=== PATIENT | male | born 1940 | race Caucasian/White ===

== ENCOUNTER 2019-09-03 06:15 | Emergency (ER) | payer MEDICARE, OTHER ==
[~2019-09-03 06:15] MED LIST: EPINEPHrine 1:10,000 1 MG/10 ML Syringe IVPUSH ONE
[2019-09-03] MEDS ORDERED: EPINEPHrine 1:10,000 1 MG/10 ML Syringe IVPUSH ONE ×3 (06:24→06:37)
[2019-09-03] MEDS ORDERED: Amiodarone 150 MG/3 ML SDV ONE ×2 (06:29)
[2019-09-03] MEDS ORDERED: EPINEPHrine 1:10,000 1 MG/10 ML Syringe ONE ×3 (06:29)
[2019-09-03] MEDS ORDERED: Amiodarone 150 MG/3 ML SDV IVPUSH ONE ×2 (06:29→06:30)
--- NOTE | 2019-09-03 06:49 | EDM.PDOC ---
ED HPI GENERAL MEDICAL PROBLEM - General Chief Complaint: General Stated Complaint: code blue Time Seen by Provider: 09/03/19 06:15 Source of Information: Reports: EMS, EMS Notes Reviewed (EMT records however process manager records not available at time of dictation). Denies: Patient, Old Records (No [facility] records available) History Limitations: Reports: Altered Mental Status (Unresponsive) - History of Present Illness INITIAL COMMENTS - FREE TEXT/NARRATIVE: The patient was brought to the emergency room via ambulance with both EMT and process manager accompaniment for evaluation of the patient, who initially complained of nonspecific dizziness and was found unresponsive and severely diaphoretic sitting on the toilet. Based on history from the acting manager the patient must have called from the kitchen and went to the bathroom prior to the arrival of the basic ambulance service. No history of fall, injury, or melena/hematochezia evident in the toilet based on their history The paramedics did intercept the acting manager in route with IV placed and 100% O2 by nonrebreather mask applied. EKG had been performed by the acting manager prior to arrival by the paramedics. Limited history is available from the initial call with the acting manager, including dizziness as above with some apparent moderate diarrhea yesterday. Patient initially exhibited sinus tachycardia, subsequent severe sinus bradycardia and subsequent asystole at time of arrival to our facility. Onset: Today, Sudden Onset Date: 09/03/19 Onset Time: 05:30 Duration: Getting Worse Treatments QUALITY ENGINEER: Reports: EKG, IV/IO, Oxygen Past Medical History HEENT History: Reports: Impaired Vision, Other (See Below) Other HEENT History: Patient wears glasses - Past Surgical History HEENT Surgical History: Reports: Oral Surgery, Other (See Below) Other HEENT Surgeries/Procedures: Complete teeth extraction - History Comment History Comment: No previous medical records with only limited history available Social & Family History - Living Situation & Occupation Living situation: Reports: Alone ED ROS GENERAL - Review of Systems Review Of Systems: Unable To Obtain Reason Not Obtained: Patient nonresponsive ED EXAM, GENERAL - Physical Exam Exam: See Below Exam Limited By: Altered Mental Status (Unresponsive) General Appearance: Obtunded Eye Exam: Bilateral Eye: Other (Pupils fixed and dilated. He does have glasses.) Throat/Mouth: Perioral Cyanosis, Other (Evidence of melena in oral cavity). No: Normal Teeth (Completely absent dentition) Neck: Other (No evidence of acute injury) Respiratory/Chest: Rales (Diffuse bilateral with bag mask therapy), Other (Apnea with no spontaneous respirations) Cardiovascular: No Edema (Asystole with good peripheral pulses with Lui 2 chest compressions), Other Peripheral Pulses: 2+: Carotid (L) (With Lui 2 chest compressions), Carotid (R) (As above), Radial (L) (As above), Radial (R) (As above) GI/Abdominal: Normal Bowel Sounds, Soft, Non-Tender, No Organomegaly, No Distention, No Abnormal Bruit, No Mass. No: Guarding (Male) Exam: Deferred Rectal (Males) Exam: Deferred Back Exam: Normal Inspection, Other (No sign of acute injury). No: CVA Tenderness (L), CVA Tenderness (R), Muscle Spasm Extremities: Non-Tender, No Pedal Edema, Other (Multiple old superficial abrasions 1centimeter in diameter over the right knee with additional multiple areas of old ecchymosis on the forearms, etc.) Neurological: Unresponsive Skin Exam: Diaphoretic, Pallor, Wound/Incision (As above) Lymphatic: No Adenopathy EKG INTERPRETATION EKG Date: 09/03/19 Time: 06:05 Rhythm: Other (Sinus tachycardia) Rate (Beats/Min): 101 Zebulon: LAD-Left Zebulon Deviation (Addended left cardiac) P-Wave: Enlarged (Moderate diffuse biphasic) QRS: LBBB (QRS of 0.12 seconds representing repolarization changes versus beginning left bundle branch block) ST-T: Other (T-wave inversion in lead aVL) QT: Normal VT/PQ Interval: 0.15 seconds Comparison: NA - No Prior EKG EKG Interpretation Comments: 1. No acute ischemic changes 2. Possible beginning left bundle branch block 3. Sinus tachycardia EKG represents EKG taken by EMT on the scene Course - Vital Signs Last Recorded V/S: See CODE BLUE form and E[facility]med documentation. - Orders/Labs/Meds Labs: None Meds: See documentation as above - Radiology Interpretation Free Text/Narrative:: Rhythm strips indicate initial asystole with PEA/PVCs with brief independent rhythm and subsequent pulseless ventricular tachycardia degrading into course pulseless ventricular fibrillation and subsequent return to asystole Departure - Departure Time of Disposition: 06:38 Disposition: 20 Preliminary Cause of *Q: Cardiac Arrest Clinical Impression: KS, Myocardial infarction, Acute GI bleeding, Asystole Aspiration into airway Qualifiers: Encounter type: initial encounter Qualified Code(s): T17.908A - Unspecified foreign body in respiratory tract, part unspecified causing other injury, initial encounter - Discharge Information *PRESCRIPTION DRUG MONITORING PROGRAM REVIEWED*: Not Applicable *COPY OF PRESCRIPTION DRUG MONITORING REPORT IN PATIENT BRITTANY: Not Applicable Additional Instructions: Body released to mortuary. - Problem List & Annotations (1) KS, Myocardial infarction SNOMED Code(s): 40774125 Code(s): I21.9 - ACUTE MYOCARDIAL INFARCTION, UNSPECIFIED Status: Acute Priority: High Onset Date: 09/03/19 Annotation/Comment:: The patient had sudden asystole and lost spontaneous aspirations right at time of arrival into our facility. All care team members were available at time of patient's arrival to this facility. Lui 2 was immediately placed with excellent peripheral pulses with this therapy. O2 was continued by means of nonrebreather mask with 1 00% O2 replacement and overall adequate oxygenation by clinical exam. Secondary to overall good response to this ventilation intubation was not indicated. Standard ACLS protocol was followed with [facility] contacted to record code process and help with patient care. Note that initial 1 mg of epinephrine was given at 06:15 hours at time of patient's arrival to this facility with [facility] not yet contacted and their sheet corrected by me. A total of four 1 mg IV boluses of epinephrine were given. Secondary to brief pulseless ventricular tachycardia and ventricular fibrillation as above electrocardioversions at 150, 200, and 200 J were performed with alternating drug therapy. Amiodarone at a total dose of 300 mg was given IV by means of 2 immediate 150 mg IV boluses. Patient subsequently remained in asystole with patient at 06:38 hours. No objections of stopping code process or any other treatment recommendations from either our treatment team or [facility]. Some difficulty reaching the patient's family with his son, David, notified by cell phone, and his daughter, Marisa, eventually arriving in the emergency room with other family members. Emotional support was provided with patient released to their mortuary. No apparent previous cardiac history, although suspect the patient had limited previous preventative healthcare based on history from the EMT. (2) Asystole SNOMED Code(s): 655333653 Code(s): I46.9 - CARDIAC ARREST, CAUSE UNSPECIFIED Status: Acute Priority: High Onset Date: 09/03/19 Annotation/Comment:: As above. Note additional brief independent rhythm, pulseless ventricular tachycardia, and ventricular fibrillation during code. (3) Acute GI bleeding SNOMED Code(s): 53781627 Code(s): K92.2 - GASTROINTESTINAL HEMORRHAGE, UNSPECIFIED Status: Acute Priority: High Onset Date: 09/03/19 Annotation/Comment:: By clinical exam evidence of probable acute upper GI bleed with melena in the oropharynx and possible aspiration prior to arrival. No known previous peptic ulcer disease based on limited history from the patient's daughter. (4) Aspiration into airway SNOMED Code(s): 450856703 Code(s): T17.908A - UNSP FB IN RESP TRACT, PART UNSP CAUSING OTH INJURY, INIT Status: Acute Priority: High Onset Date: 09/03/19 Annotation/Comment:: As above Qualifiers: Encounter type: initial encounter Qualified Code(s): T17.908A - Unspecified foreign body in respiratory tract, part unspecified causing other injury, initial encounter - Problem List Review Problem List Initiated/Reviewed/Updated: Yes - Assessment/Plan Assessment:: As above. Plan: As above. Emotional support provided to the family as above.
== END 2019-09-03 09:35 | disposition expired ==
LOC: LL.ED 06:15
DX: I21.9 Acute myocardial infarction, unspecified (principal); K92.2 Gastrointestinal hemorrhage, unspecified; T17.908A Unspecified foreign body in respiratory tract, part unspecified causing other injury, initial encounter
CPT/HCPCS: 99285-25; J0171; J0282